=== PATIENT | female | born 1965 | race Two or more races ===

== ENCOUNTER 2021-07-09 08:48 | Emergency (ER) | payer BC, OTHER ==
[~2021-07-09] VITALS: Ht 152.4 cm; Wt 93.4 kg
[2021-07-09 09:18] VITALS: BP 133/66
[2021-07-09 09:24] LABS: Basophils # (auto) 0 10 ^3/uL (0-0.2); Eosinophils # (auto) 0.1 10 ^3/uL (0-0.8); White Blood Cell 6.7 10^3/uL (4.4-10.8)
[2021-07-09 09:26] LABS: Basophils % (auto) 0.5 % (0.0-2.0); Eosinophils % (auto) 1.4 % (0.0-7.0); Hematocrit 31.7 % (36.0-46.0); Hemoglobin 10.3 g/dL (12.2-16.2); Lymphocytes # (auto) 1.8 10 ^3/uL (0.4-5.4); Lymphocytes % (auto) 26.3 % (10.0-50.0); Mean Corpuscular Hemoglobin 22.6 pg (28.0-32.0); Mean Corpuscular Hgb Conc. 32.5 g/dL (32.0-36.0); Mean Corpuscular Volume 69.5 fL (80.0-100.0); Monocytes # (auto) 0.6 10 ^3/uL (0-1.3); Monocytes % (auto) 8.8 % (0.0-12.0); Neutrophils # (auto) 4.2 10 ^3/uL (1.6-8.6); Nucleated Red Blood Cells % 0.1 %; Red Blood Cells 4.56 10^6/uL (4.0-5.20)
[2021-07-09 09:29] LABS: Urine Bacteria NONE SEEN /hpf (None Seen); Urine Blood Negative /uL (Negative); Urine Hyaline Cast FEW /lpf (0 - 2); Urine Specific Gravity 1.006 (1.001-1.035); Urine WBC <1 /hpf (0 - 5)
[2021-07-09 09:41] LABS: Albumin 3.8 g/dL (3.4-5.0); Calcium 8.8 mg/dL (8.5-10.1); Potassium 3.9 mmol/L (3.5-5.1)
[2021-07-09 09:47] LABS: BUN/Creatinine Ratio 9.1; Bilirubin, Total 0.6 mg/dL (0.2-1.0); Total Protein 7.3 g/dL (6.4-8.2)
[2021-07-09] MEDS ORDERED: CIPROFLOXACIN HCL 500 MG TAB PO ONE (10:15)
[2021-07-09] MEDS ORDERED: metroNIDAZOLE 500 MG TAB PO ONE (10:15)
[2021-07-09] MEDS ORDERED: METR500T14 PO (10:19)
[2021-07-09] MEDS ORDERED: CIPR500T4 PO (10:19)
[2021-07-09] MEDS ORDERED: HYDROcodone-ACET 5/325MG TAB PO ONE (10:30)
[2021-07-09] MEDS ORDERED: HYDR-4902 PO (10:51)
== END 2021-07-09 11:14 | disposition home or self-care (01) ==
LOC: EEVIPCON 08:48 → ER 08:48
DX: K57.90 Diverticulosis of intestine, part unspecified, without perforation or abscess without bleeding (principal)
CPT/HCPCS: 36415; 80053; 81001; 83690; 84484; 85025

== ENCOUNTER 2021-08-20 10:14 | Inpatient (IN) | payer BC ==
[~2021-08-20] VITALS: Ht 154.9 cm; Wt 60.9 kg
[~2021-08-20 10:14] MED LIST: CIPR500T4 PO; HYDR-4902 PO; METR500T14 PO
[2021-08-20] MEDS ORDERED: ONDANSETRON HCL 4 MG/2 ML VIAL IV ONE (11:15)
[2021-08-20] MEDS ORDERED: SODIUM CHLORIDE 0.9% 1,000 ML IV ONE (11:15)
[2021-08-20] MEDS ORDERED: KETOROLAC TROMETH 30 MG/ML 1ML VIAL IV ONE (11:15)
[2021-08-20 11:32] LABS: Basophils # (auto) 0 10 ^3/uL (0-0.2); Eosinophils # (auto) 0.1 10 ^3/uL (0-0.8); Lymphocytes # (auto) 1.7 10 ^3/uL (0.4-5.4)
[2021-08-20 11:34] LABS: Basophils % (auto) 0.8 % (0.0-2.0); Eosinophils % (auto) 2.5 % (0.0-7.0); Hematocrit 31.7 % (36.0-46.0); Hemoglobin 10.5 g/dL (12.2-16.2); Lymphocytes % (auto) 32.3 % (10.0-50.0); Mean Corpuscular Hemoglobin 22.9 pg (28.0-32.0); Mean Corpuscular Hgb Conc. 33.1 g/dL (32.0-36.0); Mean Corpuscular Volume 69.2 fL (80.0-100.0); Monocytes # (auto) 0.5 10 ^3/uL (0-1.3); Monocytes % (auto) 9.3 % (0.0-12.0); Neutrophils # (auto) 2.8 10 ^3/uL (1.6-8.6); Neutrophils % (auto) 55.1 % (37.0-80.0); Nucleated Red Blood Cells % 0.2 %; Red Blood Cells 4.58 10^6/uL (4.0-5.20); Red Cell Distribution Width 17.9 % (11.8-14.3); White Blood Cell 5.1 10^3/uL (4.4-10.8)
[2021-08-20 11:35] LABS: Albumin 3.5 g/dL (3.4-5.0); Calcium 8.6 mg/dL (8.5-10.1)
[2021-08-20 11:39] LABS: BUN/Creatinine Ratio 10.7; Bilirubin, Total 0.4 mg/dL (0.2-1.0); Total Protein 7.2 g/dL (6.4-8.2)
[2021-08-20 12:08] LABS: Urine Blood Negative /uL (Negative); Urine Specific Gravity 1.009 (1.001-1.035)
[2021-08-20 12:09] LABS: Urine Bacteria FEW /hpf (None Seen); Urine WBC <1 /hpf (0 - 5)
[2021-08-20] MEDS ORDERED: cefTRIAXone 1GM/50ML D5W 50 ML IV ONE (13:00)
[2021-08-20] MEDS ORDERED: metroNIDAZOLE 500MG/100ML 100 ML IV ONE (15:30)
[2021-08-20] MEDS: SOD CHL 0.45% 1,000 ML IV SCH (16:11)
[2021-08-20] MEDS: ACETAMINOPHEN 325 MG TAB PO PRN (18:19)
[2021-08-20 22:00] VITALS: BP 146/66
[2021-08-20] MEDS: metroNIDAZOLE 500MG/100ML 100 ML IV SCH (22:14)
[2021-08-21] MEDS: SOD CHL 0.45% 1,000 ML IV SCH ×4 (04:33→23:45)
[2021-08-21 04:41] VITALS: BP 145/73
[2021-08-21] MEDS: metroNIDAZOLE 500MG/100ML 100 ML IV SCH ×3 (06:03→22:45)
[2021-08-21 07:17] LABS: Albumin 3.1 g/dL (3.4-5.0); Calcium 8.3 mg/dL (8.5-10.1); Potassium 3.6 mmol/L (3.5-5.1)
[2021-08-21 07:20] LABS: BUN/Creatinine Ratio 10.7
[2021-08-21 07:25] LABS: Bilirubin, Total 0.3 mg/dL (0.2-1.0)
[2021-08-21 07:25] LABS: Basophils # (auto) 0 10 ^3/uL (0-0.2); Eosinophils # (auto) 0.1 10 ^3/uL (0-0.8); Hemoglobin 9.7 g/dL (12.2-16.2); Lymphocytes # (auto) 1.7 10 ^3/uL (0.4-5.4); Monocytes # (auto) 0.3 10 ^3/uL (0-1.3); Neutrophils # (auto) 1.7 10 ^3/uL (1.6-8.6); Nucleated Red Blood Cells % 0.1 %; White Blood Cell 3.8 10^3/uL (4.4-10.8)
[2021-08-21 07:27] LABS: Basophils % (auto) 0.8 % (0.0-2.0); Eosinophils % (auto) 3.5 % (0.0-7.0); Hematocrit 29.4 % (36.0-46.0); Lymphocytes % (auto) 43.5 % (10.0-50.0); Mean Corpuscular Volume 69.5 fL (80.0-100.0); Monocytes % (auto) 8.9 % (0.0-12.0); Neutrophils % (auto) 43.3 % (37.0-80.0); Red Blood Cells 4.23 10^6/uL (4.0-5.20); Red Cell Distribution Width 17.7 % (11.8-14.3)
[2021-08-21] MEDS: cefTRIAXone 1GM/50ML D5W 50 ML IV SCH (09:04)
[2021-08-21 12:19] LABS: Hematocrit 32.2 % (36.0-46.0); Hemoglobin 10.4 g/dL (12.2-16.2)
[2021-08-21 22:00] VITALS: BP 121/74
[2021-08-21] MEDS ORDERED: TEMAZEPAM 15 MG CAP PO ONE (22:30)
[2021-08-22 05:00] VITALS: BP 119/56
[2021-08-22] MEDS: metroNIDAZOLE 500MG/100ML 100 ML IV SCH ×4 (06:01→22:22)
[2021-08-22 07:06] LABS: Basophils # (auto) 0 10 ^3/uL (0-0.2); Eosinophils # (auto) 0.1 10 ^3/uL (0-0.8); Hematocrit 28.2 % (36.0-46.0); Mean Corpuscular Volume 69.2 fL (80.0-100.0); Monocytes # (auto) 0.4 10 ^3/uL (0-1.3); Neutrophils # (auto) 2.3 10 ^3/uL (1.6-8.6); White Blood Cell 4.7 10^3/uL (4.4-10.8)
[2021-08-22 07:09] LABS: Eosinophils % (auto) 2.7 % (0.0-7.0); Hemoglobin 9.5 g/dL (12.2-16.2); Lymphocytes # (auto) 1.8 10 ^3/uL (0.4-5.4); Lymphocytes % (auto) 38.8 % (10.0-50.0); Mean Corpuscular Hemoglobin 23.2 pg (28.0-32.0); Mean Corpuscular Hgb Conc. 33.6 g/dL (32.0-36.0); Monocytes % (auto) 8.5 % (0.0-12.0); Nucleated Red Blood Cells % 0.1 %; Red Blood Cells 4.08 10^6/uL (4.0-5.20); Red Cell Distribution Width 17.4 % (11.8-14.3)
[2021-08-22 09:00] VITALS: BP 132/63
[2021-08-22] MEDS: ONDANSETRON HCL 4 MG/2 ML VIAL IV PRN ×3 (09:41→22:40)
[2021-08-22] MEDS: HYDROmorphone HCL 2 MG/ML VL/or syr IV PRN ×2 (09:43→22:40)
[2021-08-22 10:10] LABS: Amylase 50 U/L (25-115); Lipase 119 U/L (73-393)
[2021-08-22 13:34] VITALS: BP 140/78
[2021-08-22] MEDS: cefTRIAXone 1GM/50ML D5W 50 ML IV SCH (13:53)
[2021-08-22] MEDS: SOD CHL 0.45% 1,000 ML IV SCH ×2 (13:54→15:45)
[2021-08-22 17:00] VITALS: BP 138/72
[2021-08-22] MEDS: ACETAMINOPHEN 325 MG TAB PO PRN (21:26)
[2021-08-22 22:00] VITALS: BP 136/68
[2021-08-23] MEDS: SOD CHL 0.45% 1,000 ML IV SCH ×4 (01:38→14:25)
[2021-08-23 05:00] VITALS: BP 131/59
[2021-08-23] MEDS: metroNIDAZOLE 500MG/100ML 100 ML IV SCH ×2 (05:41→14:24)
[2021-08-23 09:00] VITALS: BP 137/84
[2021-08-23] MEDS: ACETAMINOPHEN 325 MG TAB PO PRN (09:59)
[2021-08-23] MEDS: cefTRIAXone 1GM/50ML D5W 50 ML IV SCH (10:00)
[2021-08-23] MEDS ORDERED: FLUCONAZOLE 100 MG TAB PO ONE (11:45)
[2021-08-23] MEDS ORDERED: traMADol HCL 50 MG TAB PO PRN (11:45)
[2021-08-23] MEDS ORDERED: PANTOPRAZOLE 40 MG/10 ML VIAL INJ IV ONE (11:45)
[2021-08-23] MEDS ORDERED: DICYCLOMINE HCL 10 MG CAP PO PRN (12:00)
[2021-08-23 13:00] VITALS: BP 124/52
[2021-08-23 14:19] LABS: % Iron Saturation 4.7 % (15-50)
[2021-08-23 17:00] VITALS: BP 148/69
[2021-08-23 22:00] VITALS: BP 117/61
[2021-08-24] MEDS: metroNIDAZOLE 500MG/100ML 100 ML IV SCH ×2 (04:55→06:10)
[2021-08-24 05:00] VITALS: BP 123/65
[2021-08-24] MEDS: SOD CHL 0.45% 1,000 ML IV SCH (06:23)
[2021-08-24 07:29] LABS: Calcium 7.8 mg/dL (8.5-10.1); Potassium 3.7 mmol/L (3.5-5.1)
[2021-08-24 07:32] LABS: Bilirubin, Total 0.3 mg/dL (0.2-1.0); Total Protein 5.9 g/dL (6.4-8.2)
[2021-08-24 09:00] VITALS: BP 138/75
[2021-08-24] MEDS ORDERED: LIDOCAINE VISCOUS 2% 15ML UD ONE (09:24)
[2021-08-24] MEDS ORDERED: SODIUM CHLORIDE LOCK 10 ML ONE (09:24)
[2021-08-24] MEDS ORDERED: fentaNYL CITRATE 100 MCG/2 ML VL ONE (09:25)
[2021-08-24] MEDS: cefTRIAXone 1GM/50ML D5W 50 ML IV SCH (09:35)
[2021-08-24] MEDS ORDERED: PANTOPRAZOLE 40 MG/10 ML VIAL INJ IV SCH (10:00)
[2021-08-24 10:31] LABS: INR 1.07 (0.9-1.15); Partial Thromboplastin Time 25.7 sec (23.6-33.0)
[2021-08-24] MEDS: MIDAZOLAM HCL 5 MG/ML-1ML VIAL ONE ×2 (10:48→10:51)
[2021-08-24] MEDS: diphenhdrAMINE HCL 50 MG/1 ML VL ONE ×2 (10:48→10:50)
[2021-08-24] MEDS ORDERED: PANT40TA2 PO (12:35)
[2021-08-24] MEDS ORDERED: DICY10CA PO (12:35)
[2021-08-24] MEDS ORDERED: FERR-7 PO (12:38)
[2021-08-24 13:11] VITALS: BP 125/72
== END 2021-08-24 17:29 | disposition home or self-care (01) | DRG 392 ==
LOC: ER 10:14 → OVERFLOW 15:35 → WEST WING 17:20
PROVIDERS: ADMIT Registered Nurse; ATTEND Internal Medicine
PROC: 0DB88ZX Excision of Small Intestine, Via Natural or Artificial Opening Endoscopic, Diagnostic (ICD-10-PCS; 2021-08-24)
PROC: 0DB68ZX Excision of Stomach, Via Natural or Artificial Opening Endoscopic, Diagnostic (ICD-10-PCS; principal; 2021-08-24 10:43)
DX: K57.30 Diverticulosis of large intestine without perforation or abscess without bleeding (principal); N39.0 Urinary tract infection, site not specified; K58.9 Irritable bowel syndrome, unspecified; E66.01 Morbid (severe) obesity due to excess calories; Z20.822 Contact with and (suspected) exposure to COVID-19; D50.9 Iron deficiency anemia, unspecified; K76.0 Fatty (change of) liver, not elsewhere classified; N18.2 Chronic kidney disease, stage 2 (mild); Z79.899 Other long term (current) drug therapy; Z68.39 Body mass index [BMI] 39.0-39.9, adult; Z68.25 Body mass index [BMI] 25.0-25.9, adult; Z90.710 Acquired absence of both cervix and uterus; Z98.84 Bariatric surgery status; Z88.6 Allergy status to analgesic agent
CPT/HCPCS: 36415; 71045; 74176; 76705; 80053; 81001; 82150; 83540; 83550; 83605; 83690; 85014; 85018; 85025; 85610; 85730; 87086; 87088; 96361; 96365; 96367; 96375; C9113; G0378; J0696; J1885; J2250; J2405; J3490

== ENCOUNTER → 2022-11-02 | Outpatient (CLI) | payer BC ==
[~2022-11-02] MED LIST changes: +DICY10CA PO; +FERR-7 PO; +METR-344 PO; -METR500T14 PO; +PANT40TA2 PO
[2022-11-02 08:21] LABS: Hemoglobin 11.9 g/dL (12.2-16.2); Mean Corpuscular Hgb Conc. 32.7 g/dL (32.0-36.0); Monocytes # (auto) 0.4 10 ^3/uL (0-1.3)
[2022-11-02 08:23] LABS: Basophils # (auto) 0 10 ^3/uL (0-0.2); Basophils % (auto) 0.9 % (0.0-2.0); Eosinophils # (auto) 0.2 10 ^3/uL (0-0.8); Eosinophils % (auto) 3.2 % (0.0-7.0); Hematocrit 36.3 % (36.0-46.0); Lymphocytes # (auto) 1.9 10 ^3/uL (0.4-5.4); Lymphocytes % (auto) 38.6 % (10.0-50.0); Mean Corpuscular Hemoglobin 25.2 pg (28.0-32.0); Mean Corpuscular Volume 76.8 fL (80.0-100.0); Monocytes % (auto) 8.7 % (0.0-12.0); Neutrophils # (auto) 2.4 10 ^3/uL (1.6-8.6); Neutrophils % (auto) 48.6 % (37.0-80.0); Nucleated Red Blood Cells % 0.3 %; Red Blood Cells 4.73 10^6/uL (4.0-5.20); Red Cell Distribution Width 16.4 % (11.8-14.3)
[2022-11-02 08:48] LABS: Calcium 8.8 mg/dL (8.5-10.1); Potassium 3.9 mmol/L (3.5-5.1)
[2022-11-02 08:56] LABS: Albumin 3.6 g/dL (3.4-5.0); BUN/Creatinine Ratio 10.1 (10.0-20.0); Bilirubin, Total 0.5 mg/dL (0.2-1.0); Total Protein 7.2 g/dL (6.4-8.2)
[2022-11-02 12:11] LABS: Urine Bacteria NONE SEEN /hpf (None Seen); Urine Blood Negative /uL (Negative); Urine Clarity Clear (Clear); Urine Mucus FEW (None Seen); Urine Protein, UAD Negative (Negative); Urine Specific Gravity 1.007 (1.001-1.035); Urine Urobilinogen Normal (Negative); Urine WBC 1 /hpf (0 - 5)
[2022-11-02 12:18] LABS: Urine Color Straw (Yellow)
[2022-11-02 18:25] LABS: Micro Albumin 7.1 mg/L (0-30.0)
== END | disposition home or self-care (01) ==
LOC: LAB 08:05
PROVIDERS: ATTEND Internal Medicine
DX: Z12.11 Encounter for screening for malignant neoplasm of colon (principal); Z00.00 Encounter for general adult medical examination without abnormal findings; R73.03 Prediabetes
CPT/HCPCS: 36415; 80053; 80061; 81001; 82043; 82570; 83036; 84443; 85025

== ENCOUNTER → 2022-11-08 | Outpatient (CLI) | payer BC | END | disposition home or self-care (01) | LOC: LAB 08:59 | PROVIDERS: ATTEND Internal Medicine | DX: Z00.00 Encounter for general adult medical examination without abnormal findings (principal); Z12.11 Encounter for screening for malignant neoplasm of colon; N18.2 Chronic kidney disease, stage 2 (mild); R73.03 Prediabetes; D64.9 Anemia, unspecified | CPT/HCPCS: 82270 ==

== ENCOUNTER → 2022-12-22 | Outpatient (CLI) | payer BC | END | disposition home or self-care (01) | LOC: XYW 15:53 | PROVIDERS: ATTEND Student in an Organized Health Care Education/Training Program | DX: I51.89 Other ill-defined heart diseases (principal); R07.9 Chest pain, unspecified | CPT/HCPCS: 93306 ==

== ENCOUNTER 2023-03-19 08:48 | Emergency (ER) | payer BC ==
[~2023-03-19] VITALS: Ht 154.9 cm; Wt 97.8 kg
[2023-03-19 09:11] LABS: Basophils # (auto) 0.1 10 ^3/uL (0-0.2); Basophils % (auto) 0.9 % (0.0-2.0); Eosinophils # (auto) 0.1 10 ^3/uL (0-0.8); Eosinophils % (auto) 1.2 % (0.0-7.0); Hematocrit 37.7 % (36.0-46.0); Hemoglobin 12.4 g/dL (12.2-16.2); Lymphocytes # (auto) 2.2 10 ^3/uL (0.4-5.4); Lymphocytes % (auto) 24.4 % (10.0-50.0); Mean Corpuscular Hemoglobin 25.3 pg (28.0-32.0); Mean Corpuscular Hgb Conc. 32.8 g/dL (32.0-36.0); Monocytes # (auto) 0.7 10 ^3/uL (0-1.3); Monocytes % (auto) 7.9 % (0.0-12.0); Neutrophils # (auto) 5.9 10 ^3/uL (1.6-8.6); Neutrophils % (auto) 65.6 % (37.0-80.0); Nucleated Red Blood Cells % 0.1 %; Red Blood Cells 4.89 10^6/uL (4.0-5.20); Red Cell Distribution Width 16.6 % (11.8-14.3); White Blood Cell 8.9 10^3/uL (4.4-10.8)
[2023-03-19 09:31] LABS: Alkaline Phosphatase 96 U/L (46-116)
[2023-03-19 09:32] LABS: Alanine Aminotransferase 32 U/L (7-40); Albumin 4.7 g/dL (3.2-4.8); Anion Gap 11 (5-15); Aspartate Aminotransferase 36 U/L (13-40); Bilirubin, Total 0.8 mg/dL (0.2-1.0); Blood Urea Nitrogen 7 mg/dL (9-23); Calcium 9.5 mg/dL (8.5-10.1); Carbon Dioxide 24 mmol/L (20-30); Chloride 104 mmol/L (98-107); Glucose 105 mg/dL (74-106); Potassium 4.3 mmol/L (3.5-5.1); Sodium 139 mmol/L (136-145)
[2023-03-19 10:02] VITALS: BP 130/74; PULSE 95; RESP 18; TEMP 98.3; O2SAT 96
[2023-03-19] MEDS ORDERED: KETOROLAC TROMETH 60MG/2ML VIAL IM ONE (11:15)
[2023-03-19] MEDS ORDERED: DexAMETHasone SOD PHOS 10MG/1ML VIAL INJ IM ONE (11:15)
[2023-03-19 11:45] LABS: Urine Bacteria FEW /hpf (None Seen); Urine Blood 1+ /uL (Negative); Urine Clarity Clear (Clear); Urine Color Yellow (Yellow); Urine Mucus FEW (None Seen); Urine Protein, UAD TRACE (Negative); Urine Specific Gravity 1.016 (1.001-1.035); Urine WBC <1 /hpf (0 - 5); Urine pH 6.5 (5.0-8.0)
[2023-03-19] MEDS ORDERED: MELO7.5T7 PO (13:05)
[2023-03-19] MEDS ORDERED: PRED20TA2 PO (13:05)
== END 2023-03-19 13:06 | disposition home or self-care (01) ==
LOC: ER 08:48
DX: J04.0 Acute laryngitis (principal); Z98.890 Other specified postprocedural states; Z88.8 Allergy status to other drugs, medicaments and biological substances; Z79.899 Other long term (current) drug therapy
CPT/HCPCS: 36415; 71045; 80053; 81001; 84484; 85025; 85379; 96372; 99284; J1100; J1885

== ENCOUNTER 2023-03-21 08:45 | Emergency (ER) | payer BC ==
[~2023-03-21] VITALS: Ht 154.9 cm; Wt 98.9 kg
[~2023-03-21 08:45] MED LIST changes: +MELO7.5T7 PO; +PRED20TA2 PO
[2023-03-21] MEDS ORDERED: KETOROLAC TROMETH 60MG/2ML VIAL IM ONE (10:15)
[2023-03-21] MEDS ORDERED: DexAMETHasone SOD PHOS 10MG/1ML VIAL INJ IM ONE (10:15)
[2023-03-21] MEDS ORDERED: IOHEXOL 300 MG/ML 100ML BOTTLE IJ ONE (10:21)
[2023-03-21 10:49] VITALS: BP 121/79; PULSE 79; RESP 18; TEMP 98.5; O2SAT 96
[2023-03-21 12:25] LABS: COVID19 ANTIGEN SOFIA FIA NEGATIVE (NEGATIVE)
[2023-03-21 12:29] LABS: Rapid Influenza A Negative (Negative); Rapid Influenza B Negative (Negative)
[2023-03-21] MEDS ORDERED: ACET30TA15 PO (12:33)
[2023-03-21] MEDS ORDERED: AUG875T PO (12:34)
== END 2023-03-21 12:42 | disposition home or self-care (01) ==
LOC: EEVIPCON 08:45 → ER 08:45
DX: R59.9 Enlarged lymph nodes, unspecified (principal); M54.2 Cervicalgia; Z90.710 Acquired absence of both cervix and uterus; Z88.8 Allergy status to other drugs, medicaments and biological substances; Z79.899 Other long term (current) drug therapy; Z20.822 Contact with and (suspected) exposure to COVID-19
CPT/HCPCS: 36415; 70486; 70492; 87426; 87804; 96372; 99285; J1100; J1885; Q9967

== ENCOUNTER → 2023-06-09 | Outpatient (CLI) | payer BC ==
[~2023-06-09] MED LIST changes: +ACET30TA15 PO; +AUG875T PO
== END | disposition home or self-care (01) ==
LOC: XYW 08:39
PROVIDERS: ATTEND Student in an Organized Health Care Education/Training Program
DX: R07.9 Chest pain, unspecified (principal); R06.09 Other forms of dyspnea
CPT/HCPCS: 78452; 93017; A9500

== ENCOUNTER → 2023-08-21 | Outpatient (CLI) | payer BC ==
[2023-08-21 09:02] LABS: Alanine Aminotransferase 26 U/L (7-40); Albumin 4.5 g/dL (3.2-4.8); Alkaline Phosphatase 78 U/L (46-116); Anion Gap 4 (5-15); Aspartate Aminotransferase 20 U/L (13-40); BUN/Creatinine Ratio 13.9 (10.0-20.0); Bilirubin, Total 0.5 mg/dL (0.2-1.0); Blood Urea Nitrogen 11 mg/dL (9-23); Calcium 9.4 mg/dL (8.5-10.1); Carbon Dioxide 28 mmol/L (20-30); Chloride 108 mmol/L (98-107); Cholesterol 135 mg/dL (< 200); Glucose 103 mg/dL (74-106); HDL Cholesterol 68 mg/dL (40-59); LDL Cholesterol 54 mg/dL (< 100); Sodium 140 mmol/L (136-145); Triglycerides 86 mg/dL (< 150)
[2023-08-21 09:03] LABS: Total Protein 6.9 g/dL (5.7-8.2)
[2023-08-21 12:31] LABS: Creatinine, Urine 65.79 mg/dL (30.0-125.0)
== END | disposition home or self-care (01) ==
LOC: LAB 08:25
PROVIDERS: ATTEND Internal Medicine
DX: I10 Essential (primary) hypertension (principal); E78.5 Hyperlipidemia, unspecified; R73.03 Prediabetes
CPT/HCPCS: 36415; 80053; 80061; 82043; 82570; 83036

== ENCOUNTER → 2024-03-22 | Outpatient (CLI) | payer BC | END | disposition home or self-care (01) | LOC: LAB 05:50 | PROVIDERS: ATTEND Nurse Practitioner Family | DX: N39.0 Urinary tract infection, site not specified (principal) | CPT/HCPCS: 87086 ==

== ENCOUNTER 2024-04-03 07:38 | Day surgery (SDC) | payer BC ==
[2024-04-02 12:35] LABS: Urine Bacteria None Seen /hpf (None Seen)
[2024-04-02 12:53] LABS: Urine Blood TRACE /uL (Negative); Urine Clarity Clear (Clear); Urine Color Light-Yellow (Yellow); Urine Mucus FEW (None Seen); Urine Protein, UAD Negative (Negative); Urine Specific Gravity 1.018 (1.001-1.035); Urine Squamous Epithelial Cell FEW /hpf (<5); Urine Urobilinogen Normal (Negative); Urine WBC 1 /hpf (0 - 5); Urine pH 6.5 (5.0-9.0)
[2024-04-02 12:54] LABS: Basophils # (auto) 0 10 ^3/uL (0-0.2); Basophils % (auto) 0.7 % (0.0-2.0); Eosinophils # (auto) 0.1 10 ^3/uL (0-0.8); Eosinophils % (auto) 1.9 % (0.0-7.0); Hematocrit 39.3 % (36.0-46.0); Hemoglobin 12.8 g/dL (12.2-16.2); Lymphocytes # (auto) 2.2 10 ^3/uL (0.4-5.4); Lymphocytes % (auto) 40.2 % (10.0-50.0); Mean Corpuscular Hemoglobin 26.4 pg (28.0-32.0); Mean Corpuscular Hgb Conc. 32.7 g/dL (32.0-36.0); Mean Corpuscular Volume 80.8 fL (80.0-100.0); Monocytes # (auto) 0.4 10 ^3/uL (0-1.3); Monocytes % (auto) 7.3 % (0.0-12.0); Neutrophils # (auto) 2.7 10 ^3/uL (1.6-8.6); Neutrophils % (auto) 49.9 % (37.0-80.0); Platelet Count (auto) 359 10^3/uL (140-450); Red Blood Cells 4.86 10^6/uL (4.0-5.20); Red Cell Distribution Width 16.3 % (11.8-14.3); White Blood Cell 5.4 10^3/uL (4.4-10.8)
[2024-04-02 12:59] LABS: Alanine Aminotransferase 21 U/L (7-40); Albumin 4.7 g/dL (3.2-4.8); Alkaline Phosphatase 82 U/L (46-116); Anion Gap 6 (5-15); Aspartate Aminotransferase 23 U/L (13-40); Calcium 9.7 mg/dL (8.7-10.4); Carbon Dioxide 28 mmol/L (20-31); Chloride 106 mmol/L (98-107); Glucose 96 mg/dL (74-106); Potassium 4.1 mmol/L (3.5-5.1); Sodium 140 mmol/L (136-145)
[2024-04-02 13:00] LABS: Bilirubin, Total 0.5 mg/dL (0.2-1.0); Total Protein 7.2 g/dL (5.7-8.2)
[2024-04-02 13:02] LABS: INR 0.98 (0.9-1.15); Partial Thromboplastin Time 25.5 SEC (24.5-34.5); Prothrombin Time 10.4 sec (9.3-11.8)
[2024-04-02 13:03] LABS: Blood Urea Nitrogen 9 mg/dL (9-23)
[~2024-04-03] VITALS: Ht 154.9 cm; Wt 92.5 kg
[2024-04-03] MEDS ORDERED: BUPIVACAINE HCL 50 ML ONE ×3 (08:50→09:32)
[2024-04-03] MEDS ORDERED: ceFAZolin 2 GM/D5W100ml 100 ML IV ONE (08:51)
[2024-04-03] MEDS ORDERED: KETAMINE 50mg/ML 1ml syringe ONE (09:16)
[2024-04-03] MEDS ORDERED: MIDAZOLAM HCL 2MG/2ML 2ml VIAL (1mg/ml) ONE (09:16)
[2024-04-03] MEDS ORDERED: fentaNYL CITRATE 100 MCG/2 ML VL ONE (09:16)
[2024-04-03] MEDS ORDERED: KETOROLAC TROMETH 30 MG/ML 1ML VIAL ONE (09:17)
[2024-04-03] MEDS ORDERED: ONDANSETRON HCL 4 MG/2 ML VIAL ONE (09:17)
[2024-04-03] MEDS ORDERED: PROPOFOL 10 MG/ML 20 ML IV ONE (09:17)
[2024-04-03] MEDS ORDERED: ePHEDrine SULFATE 50 MG/ML AMP ONE (09:17)
[2024-04-03] MEDS ORDERED: LIDOCAINE 2% (LOCAL ANESTH.) PF 5ml SDV ONE (09:17)
[2024-04-03] MEDS ORDERED: GLYCOPYRROLATE 0.2 MG/ML 1ML VIAL ONE (09:17)
[2024-04-03] MEDS ORDERED: DexAMETHasone SOD PHOS 10MG/1ML VIAL INJ ONE (09:17)
[2024-04-03] MEDS ORDERED: HYDROmorphone HCL 2 MG/ML VL/or syr ONE (09:30)
[2024-04-03] MEDS: BUPIVACAINE 0.5% INJ 50ML VIAL IJ ONE (09:45)
[2024-04-03 10:08] VITALS: PULSE 68; RESP 10; O2SAT 98
--- NOTE | 2024-04-03 10:08 | DVHOP2 ---
Operative Report - 2 Report Details Date: 04/03/24 Preop Diagnosis: 1. Left ankle instability 2. Left ankle ATFL tear 3. Left ankle peroneal brevis tendon tear 4. Left ankle pain Postop Diagnosis: Left ankle instability with peroneal tendon tear Surgeon: Kate Thompson MD Anesthesiologist: See anesthesia Anesthesia: General Implant: 2-0 knotless fiber tacks Consent: The patient was informed of the risks and benefits of the procedure. These include but are not limited to complications of anesthesia, postoperative infection, incomplete relief of symptoms, recurrence of symptoms, damage to blood vessels, nerves and tendons, deep venous thrombosis, pulmonary embolism and possible need for repeat surgery in the future. Estimated Blood Loss: 10 mL Fluids: See anesthesia Findings: Consistent with diagnosis Indications for Surgery: Worsening left ankle instability Name of Procedure Performed 1. Left ankle ligament repair (32769) 2. Left peroneal brevis tendon repair (03686) 3. Left ganglion cyst excision (94719) 4. Left ankle arthrotomy (48107) Procedure Details Procedure Details: PRE-PROCEDURE INFORMATION: In the pre-op holding area, the extremity to be operated on was clearly marked and the patient verified correct laterality of the marking. The patient was transferred to the OR table and placed in a supine position. A timeout was performed in which identification of the correct patient, procedure, location, and materials was done. The left foot and leg were prepped and draped in normal sterile fashion. The foot and leg were exsanguinated and the thigh tourniquet was inflated to 250 mmHg. DESCRIPTION OF PROCEDURE: Attention was directed to the left lateral ankle where a curvilinear longitudinal incision was made just anterior to the distal fibula. This incision was deepened through blunt and sharp dissection to the level of both the fibula and the talus so that both were visualized. Care was taken throughout dissection to avoid damage to neurovascular structures. An arthrotomy of the ankle joint was performed revealing normal appearing joint fl uid. It was noted that the anterior talofibular ligament was attenuated and needed repair. The talar dome was inspected and noted to be free of osteochondral lesions. Utilizing a periosteal elevator, the periosteum of the anterior distal fibula was reflected in preparation for the placement of the soft tissue anchors. The knotless fibertak anchors were then used to recreate the ATFL and CFL ligaments. Prior to the procedure being performed, there was a positive anterior drawer sign. After, this procedure, there was a negative anterior drawer. Attention was then directed to the peroneal retinaculum, where using tenotomy scissors the retinaculum was then incised and the peroneal tendons were inspected. There was noted be a longitudinal split tear of the peroneal brevis tendon. There was no tearing of the peroneal longus tendon. Using a 3-0 Ethibond suture, a baseball stitch was then used to repair the peroneal brevis tendon. The retinaculum was then repaired using 2-0 Vicryl. There was a small ganglion cyst that was located anterior to the retinaculum which was excised. The capsule was then oversewn with 2-0 Vicryl. The wound was irrigated copiously with normal saline and closed in layers. All surgical wounds were irrigated copiously with saline and closed in layers with the aforementioned suture material. A dry sterile dressing was placed on the surgical extremity. The patient was placed in a cam boot POSTOPERATIVE INFORMATION: The patient tolerated the above noted procedure and anesthesia well and was transferred to the PACU with vital signs stable, and vascular status intact with capillary refill intact to all digits. Postoperative instructions reviewed in detail with the patient with written instructions provided. Patient will return to clinic in approximately 10-14 days for first postoperative visit. Patient has the number of the clinic and was instructed to call prior to that time should any problems, questions, or concerns arise. Condition Good Disposition Home KATE THOMPSON DPM Apr 03, 2024 10:08
[2024-04-03] MEDS ORDERED: HYDROmorphone HCL 2 MG/ML VL/or syr IV PRN (10:15)
[2024-04-03] MEDS ORDERED: ONDANSETRON HCL 4 MG/2 ML VIAL IV ONE (10:15)
[2024-04-03 10:50] VITALS: BP 133/90; PULSE 79; RESP 20; O2SAT 99
== END 2024-04-03 11:50 | disposition home or self-care (01) ==
LOC: SUR 07:38
PROVIDERS: ATTEND Podiatrist
DX: M25.372 Other instability, left ankle (principal); S93.492A Sprain of other ligament of left ankle, initial encounter; S86.312A Strain of muscle(s) and tendon(s) of peroneal muscle group at lower leg level, left leg, initial encounter; M76.62 Achilles tendinitis, left leg; X58.XXXA Exposure to other specified factors, initial encounter; Y93.89 Activity, other specified; Y92.89 Other specified places as the place of occurrence of the external cause; Y99.8 Other external cause status
CPT/HCPCS: 25111; 27658; 27698; 36415; 80053; 81001; 85025; 85610; 85730; C1713; J1100; J1171; J1885; J2003; J2250; J2405; J2704; J3010; J3490

== ENCOUNTER → 2024-12-25 | Outpatient (CLI) | payer BC ==
[2024-12-25 07:38] LABS: Nucleated Red Blood Cells % 0.0 %
[2024-12-25 07:40] LABS: Hematocrit 37.1 % (36.0-46.0); Hemoglobin 12.5 g/dL (12.2-16.2); Mean Corpuscular Hemoglobin 25.8 pg (28.0-32.0); Mean Corpuscular Volume 77.0 fL (80.0-100.0)
[2024-12-25 08:09] LABS: Alanine Aminotransferase 21 U/L (7-40); Albumin 4.6 g/dL (3.2-4.8); Alkaline Phosphatase 81 U/L (46-116); Anion Gap 10 (5-15); Calcium 9.0 mg/dL (8.7-10.4); Carbon Dioxide 28 mmol/L (20-31); Chloride 105 mmol/L (98-107); Potassium 4.0 mmol/L (3.5-5.1); Sodium 143 mmol/L (136-145); Total Protein 7.2 g/dL (5.7-8.2); Triglycerides 124 mg/dL (< 150)
[2024-12-25 08:10] LABS: Bilirubin, Total 0.6 mg/dL (0.2-1.0); Cholesterol 154 mg/dL (< 200)
[2024-12-25 08:11] LABS: BUN/Creatinine Ratio 7.6 (10.0-20.0); Blood Urea Nitrogen < 5 mg/dL (9-23); Glucose 99 mg/dL (74-106); HDL Cholesterol 78 mg/dL (40-59)
[2024-12-25 08:41] LABS: Microalb/Creat Ratio, Urine 5.0
[2024-12-25 11:40] LABS: Urine Protein, UAD TRACE (Negative)
== END | disposition home or self-care (01) ==
LOC: LAB 07:14
PROVIDERS: ATTEND Internal Medicine
DX: I10 Essential (primary) hypertension (principal); E78.5 Hyperlipidemia, unspecified; E66.9 Obesity, unspecified; R73.03 Prediabetes
CPT/HCPCS: 36415; 80053; 80061; 81001; 82043; 82306; 82570; 82607; 82746; 83036; 84443; 85025